=== PATIENT | female | born 1950 | race Caucasian/White ===

== ENCOUNTER → 2018-07-17 09:51 | Outpatient (CLI) | payer MEDICARE, SELFPAY ==
--- NOTE | 2018-07-17 09:57 | DI.RAD.S_ITS ---
PROCEDURE: XR SHOULDER RT MIN 2V INDICATIONS: Evaluation TECHNIQUE: 3 views of the shoulder were acquired. COMPARISON: None. FINDINGS: Bones: No definite acute fractures or dislocations but there is distortion of the humeral head to the degree that prior fracture with healing is the likely cause. A superimposed nondisplaced fracture could not be adequately detected given this circumstance.. No suspicious bony lesions. Visualized ribs appear intact. Soft tissues: No suspicious soft tissue calcifications. IMPRESSION: Probable old fracture as cause of moderate distortion of the humeral head. Superimposed moderate degenerative osteoarthritic change. A definite acute fracture is not seen. If acute trauma is clinically suspected followup by MR scanning may be warranted. Dictated by: Osman Cordero M.D. on 07/17/2018 at 10:36 Approved by: Osman Cordero M.D. on 07/17/2018 at 11:15
== END ==
PROVIDERS: Family Provider Family Medicine; PCP Family Medicine; Visit Provider Internal Medicine
DX: M25.511 Pain in right shoulder (principal)
CPT/HCPCS: 73030

== ENCOUNTER → 2018-09-13 07:11 | Outpatient (CLI) | payer MEDICARE, SELFPAY ==
[2018-09-13 07:35] LABS: Add Manual Diff / Slide Review NO; Basophils Percent Auto 0.8 % (0-2); Eosinophils Percent Auto 1.8 % (2-4); Hematocrit 39.3 % (36-46); Hemoglobin 13.3 g/dL (12.0-16.0); Mean Corpuscular HGB Conc 33.7 % (30-36); Mean Corpuscular Hemoglobin 31.3 PG (26-34); Mean Corpuscular Volume 92.9 fL (80-100); Monocytes Percent Auto 10.5 % (3-14); Neutrophils Absolute Auto 2200 /uL (3000-5900); Neutrophils Percent Auto 49.9 % (50-75); Platelet Count 210 X10^3/uL (150-400); Red Blood Cell Count 4.23 X10^6/uL (4.0-5.2); Red Cell Distribution Width 13.7 % (11.6-14.8); White Blood Cell Count 4.3 X10^3/uL (4.5-11.0)
[2018-09-13 08:10] LABS: Alanine Aminotransferase 41 IU/L (9-52); Albumin 4.7 g/dL (3.5-5.0); Alkaline Phosphatase 48 U/L (38-126); Aspartate Aminotransferase 25 IU/L (14-36); BUN Creatinine Ratio 26.7 (6-22); Bilirubin Total 0.6 mg/dL (0.2-1.3); Blood Urea Nitrogen 16 mg/dL (7-17); Calcium 9.8 mg/dL (8.4-10.2); Carbon Dioxide 30 mmol/L (22-32); Chloride 105 mmol/L (98-107); Cholesterol 200 mg/dL (140-199); Estimated Glomerular Filt Rate > 60.0 mL/min (>60); Globulin 2.4 g/dL (1.7-4.1); Glucose 94 mg/dL (80-110); HDL Cholesterol 65 mg/dL (40-60); HEMOLYSIS < 15 (0-50); LDL Cholesterol Calculated 119 mg/dL (<100); Potassium 4.3 mmol/L (3.4-5.1); Sodium 144 mmol/L (137-145); Total Protein 7.1 g/dL (6.3-8.2); Triglycerides 79 mg/dL (35-150)
[2018-09-13 08:27] LABS: Vitamin D 25 Hydroxy (D3) 57.6 ng/mL (30.0-100.0)
== END ==
PROVIDERS: PCP Family Medicine; Visit Provider Family Medicine
DX: E03.9 Hypothyroidism, unspecified (principal); E78.5 Hyperlipidemia, unspecified; Z78.0 Asymptomatic menopausal state; Z13.0 Encounter for screening for diseases of the blood and blood-forming organs and certain disorders involving the immune mechanism
CPT/HCPCS: 36415; 80053; 80061; 82306; 82728; 84443; 85025

== ENCOUNTER → 2018-11-04 13:33 | Outpatient (CLI) | payer MEDICARE, SELFPAY ==
--- NOTE | 2018-11-04 13:34 | DI.US.S_ITS ---
PROCEDURE: US THYROID INDICATIONS: FOLLOW-UP NODULES TECHNIQUE: Real-time scanning was performed of the thyroid gland, with image documentation. COMPARISON: [facility], US, THYROID, 11/01/2017, 12:10. FINDINGS: Right: Thyroid lobe measures 4.9 x 2.3 x 2.2 cm, and is homogeneous in echotexture. Left: Thyroid lobe measures 2.9 x 1.018 cm, and is homogenous in echotexture. Isthmus: 1.8 mm thick. Nodule number: 1 Location: Right inferior Size: Unchanged at 3.5 x 2.1 x 2.1 cm. Composition: Solid Echogenicity: Hypoechoic Shape: wider than tall. Margins: Smooth Echogenic foci: Internal echogenic punctate foci. Total points: 7 ACR TI-RADS category: Highly suspicious Nodule number: 2 Location: Right superior Size: Unchanged at 0.9 x 0.7 x 1.0 cm. Composition: Solid Echogenicity: Hypoechoic Shape: wider than tall. Margins: Smooth Echogenic foci: None Total points: 4 ACR TI-RADS category: Moderately suspicious IMPRESSION: Highly suspicious right thyroid nodule. Recommend sonographically directed fine needle aspiration if the nodule has not been previously biopsied for pathologic diagnosis and continued sonographic surveillance and the smaller nodule. ACR TI-RADS definitions and recommendations: TI-RADS 1 (benign): 0 points. FNA not needed. TI-RADS 2 (not suspicious): 2 points. FNA not needed. TI-RADS 3 (mildly suspicious): 3 points. * FNA if 2.5 cm or larger, follow up if 1.5 cm or larger (at 1, 3, and 5 years). TI-RADS 4 (moderately suspicious): 4-6 points. * FNA if 1.5 cm or larger, follow up if 1 cm or larger (at 1, 2, 3, and 5 years). TI-RADS 5 (highly suspicious): 7 points or more. * FNA if 1 cm or larger, follow up if 0.5 cm or larger (every year for 5 years). Dictated by: Clay Garcia A Interpreted: Terri Rocha MD on 11/04/2018 at 15:40 Approved by: Terri Rocha MD, PhD on 11/04/2018 at 17:17
== END ==
PROVIDERS: Family Provider Family Medicine; PCP Family Medicine; Referring Provider Nurse Practitioner; Visit Provider Family Medicine
DX: E04.2 Nontoxic multinodular goiter (principal); M85.852 Other specified disorders of bone density and structure, left thigh; Z78.0 Asymptomatic menopausal state; Z90.722 Acquired absence of ovaries, bilateral
CPT/HCPCS: 76536; 77080

== ENCOUNTER 2019-03-14 07:26 | Day surgery (SDC) | payer MEDICARE, SELFPAY ==
--- NOTE | 2019-03-14 | PATH_ITS ---
[facility] Accession Number: [id number] . 01 Material submitted: . PART A: colon - POLYP AT 40 PART B: colon - POLYP AT 20 . 02 Diagnosis: A. Biopsy, Colon Polyp at 40 cm: Tubular adenoma. . B. Biopsy, Colon Polyp at 20 cm: Hyperplastic polyp involving multiple biopsy fragments. MRV/03/17/2019 . 02 Electronically signed: . Shabbir Emerson MD, Pathologist NPI- [id number] . 01 Gross description: . Part A: POLYP AT 40: Received in formalin is 1 fragment(s) of jung, soft tissue measuring 0.3 x 0.3 x 0.3 cm which is entirely submitted and submitted entirely in 1 cassette(s) Part B: POLYP AT 20: Received in formalin are multiple fragment(s) of jung, soft tissue measuring 0.1 x 0.1 x 0.1 cm to 0.3 x 0.2 x 0.2 cm which is entirely submitted and submitted entirely in 1 cassette(s) /DMC /DMC . 02 Pathologist provided ICD-10: D12.4 . 02 CPT . 417069, [id number] Performed at: 01 [facility] [address] [facility], [place], [place] [id number] MD Carl Samuels MD Phone: [phone] Performed at: 02 [facility] [address] [place], [place] [id number] MD Annie Flores MD Phone: [phone]
[2019-03-14 07:56] VITALS: BP 120/69; PULSE 68; RESP 16; TEMP 36.2; O2SAT 100; BMI 29.5
[2019-03-14] MEDS: SODIUM CHLORIDE 0.9% 1,000 ML 200 ML IV (08:23)
[2019-03-14 08:25] VITALS: BMI 29.5
--- NOTE | 2019-03-14 10:08 | P.HP_ITS ---
History of Present Illness Date Patient Seen: 03/14/19 Time Patient Seen: 10:06 Chief complaint: [id number] Narrative: Patient is a woman here for screening colonoscopy. Last exam was 5 years ago. She has a family history of colon cancer personal history of polyps. Patient History Medical History Osteoarthritis (Chronic ~2003) Osteopenia (Chronic 2013) Right knee meniscal tear (Chronic ~2014) Right knee pain (Chronic ~2014) Right thyroid nodule (Chronic 10/12/17) Shoulder pain (Chronic 1999) Tinnitus (Chronic) Vertigo (Chronic) Anemia (Resolved 1973) Cataract (Resolved) Tubular adenoma of colon (Resolved 01/13/13) Surgical History Anesthesia (Resolved) History of colonoscopy with polypectomy (Resolved 01/13/13) History of colonoscopy with polypectomy (Resolved 05/10/09) History of left cataract surgery (Resolved 12/11/17) History of right cataract surgery (Resolved 12/11/17) Status post hysterectomy (Resolved 1987) Status post knee surgery (Resolved 2012) Status post left oophorectomy (Resolved 1989) Status post right oophorectomy (Resolved 1987) Status post tubal ligation (Resolved ~1974) Family History (Updated 09/17/18 @ 13:57 by Meoldy Walsh) Brother Age: 66 Low blood sugar Brother Age: 64 High cholesterol Brother Age: 57 High cholesterol Father Age: 94 Colon cancer Prostate cancer Mother Age: 93 High cholesterol Dementia Sister Age: 68 High cholesterol Sister Age: 59 Low blood sugar Sister Age: 48 High cholesterol Brother No problems noted. Sister No problems noted. Sister No problems noted. Other Malignant melanoma of rectum Social History household members: spouse Smoking Status: Never smoker Family & Social History Family History Brother Age: 66 Low blood sugar Brother Age: 64 High cholesterol Brother Age: 57 High cholesterol Father Age: 94 Colon cancer Prostate cancer Mother Age: 93 High cholesterol Dementia Sister Age: 68 High cholesterol Sister Age: 59 Low blood sugar Sister Age: 48 High cholesterol Brother No problems noted. Sister No problems noted. Sister No problems noted. Other Malignant melanoma of rectum Social History: household members spouse Tobacco & Substance use: Smoking Status Never smoker Meds Home Medications Medication Instructions Recorded Confirmed Type CHOLECALCIFEROL (VITAMIN D3) 5,000 iu PO Q DAY #0 05/17/12 03/14/19 History (VITAMIN D) [place]/Cu/Glucosamine HCl/M 1 tab PO Q DAY #0 06/10/12 03/14/19 History (#GLUCOSAMINE COMPLEX) Calcium (#CALCIUM 500) 500 mg PO Q DAY #0 06/10/12 03/14/19 History MULTIVITAMIN (#MULTIPLE VITAMINS) 1 cap PO Q DAY #0 06/10/12 03/14/19 History ascorbic acid (vitamin C) 1,000 mg PO BID #0 06/10/12 03/14/19 History Iron (#FERROUS FUMARATE) 29 mg PO EVERY OTHER DAY #30 10/08/12 03/14/19 History Ovega-3 1 tab PO BID #0 12/11/17 03/14/19 History levothyroxine 25 mcg tablet 25 mcg PO QAM #90 tab 12/31/18 03/14/19 Rx lutein 20 mg PO DAILY 03/14/19 03/14/19 History Allergies Allergy/AdvReac Type Severity Reaction Status Date / Time Sulfa (Sulfonamide Allergy Mild JOINT PAIN Verified 03/14/19 07:52 Antibiotics) [SULFA (SULFONAMIDE ANTIBIOTICS)] Review of Systems Review of Systems All systems reviewed & are unremarkable except as noted in HPI and below Endocrine Comments: Hypothyroid on medication Exam Vital Signs (past 8 hours): - 03/14/19 07:56 Temperature 97.2 F L Pulse Rate 68 Respiratory Rate 16 Blood Pressure 120/69 Pulse Oximetry 100 Oxygen Delivery Method Room Air Narrative Exam Narrative: coOperative no apparent distress. Lungs are clear to auscultation. No rales or rhonchi. Heart regular rate and rhythm no murmur or gallop. Abdomen is soft nontender without mass. Patient is alert oriented x3 Assessment & Plan Assessment & Plan narrative: Patient for screening colonoscopy. I have discussed the procedure and the rationale with the patient including risks of bleeding, perforation which would necessitate a major operation, failure to find remove all lesions and the potential to tattoo. They appeared to understand and wished to proceed.
--- NOTE | 2019-03-14 10:08 | PM.PREOP ---
Pre-operative Note Interval Note History & Physical reviewed/Exam performed by Physician: Yes Changes to H&P: No ASA Class (for procedural sedation): II
[2019-03-14] MEDS: MIDAZOLAM 5 MG/5 ML VIAL IV (10:29)
[2019-03-14] MEDS: fentaNYL 250 MCG/5 ML INJ IV (10:30)
--- NOTE | 2019-03-14 10:48 | PM.OP.ENDO ---
Operative Date/Time/Diagnoses Date of procedure: 03/14/19 Time of procedure: 10:48 Pre-op diagnosis: Screening colonoscopy. Last exam 5 years ago. History of polyps. Family history of colon cancer in the father. Post-op diagnosis: same (Three small polyps. Occasional diverticulosis) Procedure & Clinicians Study performed: Colonoscopy with cold biopsy Same procedure as scheduled: Yes Indications: Screening Surgeon: Lester Muro Procedure Notes SCOAP/Timeout: Performed Procedure in detail: The patient was placed in the left lateral decubitus position and underwent IV sedation directed by the surgeon consisting of fentanyl and Versed. Digital exam was remarkable for decreased sphincter tone. The scope was inserted and advanced through the rectum into the sigmoid, descending, transverse, and ascending colon. Patient was noted to have occasional sigmoid diverticulosis.. The cecum was reached identified by the ileocecal valve and the appendiceal opening. The scope was gradually brought out. Polyps were found at 40 cm from the anal verge in 20 cm from the anal verge. These were all very small.. The scope ultimately was retroflexed in the rectum. The appearance was normal. The scope was removed and the patient tolerated the procedure well. the prep was excellent. Scope withdrawal time: 18 minutes Sedation minutes: 34 Findings: diverticulosis (Sigmoid) and polyp (Three very small polyps removed) Specimen(s): other (Polyps) Complications: none Recommendations: Colonscopy in 5 years Follow up: as needed Disposition: PACU
[2019-03-14 10:51] VITALS: BP 126/69; PULSE 89; RESP 12; TEMP 37.1; O2SAT 100
[2019-03-14 11:14] VITALS: BP 102/60; PULSE 71; TEMP 36.4; O2SAT 100
== END 2019-03-14 11:27 | disposition home or self-care (01) ==
PROVIDERS: PCP Family Medicine; Visit Provider Specialist
PROC: 0DJD8ZZ Inspection of Lower Intestinal Tract, Via Natural or Artificial Opening Endoscopic (ICD-10-PCS; CPT 45378; principal; 2019-03-14 08:45)
DX: Z86.010 Personal history of colon polyps (principal); Z80.0 Family history of malignant neoplasm of digestive organs; K57.30 Diverticulosis of large intestine without perforation or abscess without bleeding; D12.4 Benign neoplasm of descending colon
CPT/HCPCS: 45380; 88305; 99152; 99153; J2250; J3010

== ENCOUNTER → 2019-08-19 12:29 | Outpatient (CLI) | payer MEDICARE, SELFPAY ==
--- NOTE | 2019-08-19 | DI.MG.S_ITS ---
BILATERAL DIGITAL SCREENING MAMMOGRAM 3D/2D WITH CAD: 08/19/2019 CLINICAL: Routine screening. Family history of breast cancer. Comparison is made to exams dated: 08/14/2017 mammogram, 07/13/2015 mammogram, and 07/09/2014 mammogram - [facility]. There are scattered fibroglandular elements in both breasts. Current study was also evaluated with a Computer Aided Detection (CAD) system. No significant masses, calcifications, or other findings are seen in either breast. There has been no significant interval change. IMPRESSION: NEGATIVE There is no mammographic evidence of malignancy. A 1 year screening mammogram is recommended. This exam was interpreted at Station ID: [id number]. NOTE: For mammograms, a report in lay terms will be sent to the patient. Approximately 15% of breast malignancies will not be visualized mammographically. In the management of a palpable breast mass, a negative mammogram must not discourage biopsy of a clinically suspicious lesion. Electronically Signed By: Denia bay/prosper:08/19/2019 13:36:23 letter sent: Normal Exam ACR BI-RADS Category 1: Negative [id number]
== END ==
PROVIDERS: PCP Family Medicine; Visit Provider Family Medicine
DX: Z12.31 Encounter for screening mammogram for malignant neoplasm of breast (principal); Z80.3 Family history of malignant neoplasm of breast
CPT/HCPCS: 77063; 77067

== ENCOUNTER → 2019-09-03 07:06 | Outpatient (CLI) | payer MEDICARE, SELFPAY ==
[2019-09-03 08:23] LABS: Hemoglobin 13.1 g/dL (12.0-16.0); Mean Corpuscular HGB Conc 33.6 % (30-36); Mean Corpuscular Hemoglobin 31.2 PG (26-34); Mean Corpuscular Volume 92.9 fL (80-100); Platelet Count 221 X10^3/uL (150-400); Red Cell Distribution Width 12.8 % (11.6-14.8); White Blood Cell Count 4.5 X10^3/uL (4.5-11.0)
[2019-09-03 08:37] LABS: Alanine Aminotransferase 34 IU/L (9-52); Albumin 4.5 g/dL (3.5-5.0); Albumin Globulin Ratio 1.6 (1.0-2.8); Alkaline Phosphatase 53 U/L (38-126); Aspartate Aminotransferase 26 IU/L (14-36); BUN Creatinine Ratio 33.3 (6-22); Bilirubin Total 0.6 mg/dL (0.2-1.3); Blood Urea Nitrogen 20 mg/dL (7-17); Calcium 9.7 mg/dL (8.4-10.2); Carbon Dioxide 28 mmol/L (22-32); Chloride 105 mmol/L (98-107); Cholesterol 189 mg/dL (140-199); Estimated Glomerular Filt Rate > 60.0 mL/min (>60); Globulin 2.8 g/dL (1.7-4.1); Glucose 89 mg/dL (80-110); HDL Cholesterol 58 mg/dL (40-60); HEMOLYSIS < 15 (0-50); LDL Cholesterol Calculated 112 mg/dL (<100); Potassium 4.4 mmol/L (3.4-5.1); Sodium 140 mmol/L (137-145); Total Protein 7.3 g/dL (6.3-8.2); Triglycerides 97 mg/dL (35-150)
[2019-09-03 09:04] LABS: TSH w/ Reflex to FT4 1.34 uIU/mL (0.47-4.68)
[2019-09-03 10:18] LABS: Neutrophils Absolute Manual 1935 /uL (3000-5900); Total Cells Counted 100
[2019-09-03 10:20] LABS: RBC Morphology Normal Morphology
== END ==
PROVIDERS: PCP Family Medicine; Visit Provider Family Medicine
DX: D72.819 Decreased white blood cell count, unspecified (principal); E78.5 Hyperlipidemia, unspecified; E03.9 Hypothyroidism, unspecified
CPT/HCPCS: 36415; 80053; 80061; 84443; 85025

== ENCOUNTER → 2019-09-16 14:12 | Outpatient (CLI) | payer MEDICARE, SELFPAY ==
[2019-09-16 15:46] LABS: Ferritin 64.3 ng/mL (11.1-264)
[2019-09-16 16:07] LABS: Vitamin D 25 Hydroxy (D3) 41.8 ng/mL (30.0-100.0)
== END ==
PROVIDERS: PCP Family Medicine; Visit Provider Family Medicine
DX: E55.9 Vitamin D deficiency, unspecified (principal); Z78.9 Other specified health status
CPT/HCPCS: 36415; 82306; 82728

== ENCOUNTER → 2019-11-14 14:00 | Outpatient (CLI) | payer MEDICARE, SELFPAY ==
--- NOTE | 2019-11-14 14:03 | DI.US.S_ITS ---
PROCEDURE: US THYROID INDICATIONS: f/u thyroid nodule TECHNIQUE: Real-time scanning was performed of the thyroid gland, with image documentation. COMPARISON: [facility], US, US THYROID, 11/04/2018, 14:13. FINDINGS: Right: Thyroid lobe measures 4.8 x 1.7 x 1.9 cm, and is homogeneous in echotexture. Left: Thyroid lobe measures 2.9 x 0.8 x 1.0 cm, and is homogenous in echotexture. Isthmus: 2.0 mm thick. Nodule number: 1 Location: Right inferior Size: Unchanged at 3.5 x 2.0 x 2.1 cm. Composition: Solid Echogenicity: Hypoechoic Shape: wider than tall. Margins: Smooth Echogenic foci: Internal punctate echogenic foci Total points: 7 ACR TI-RADS category: Highly suspicious Nodule number: 2 Location: Right superior Size: Unchanged 0.9 x 0.7 x 1.1 cm. Composition: Solid Echogenicity: Hypoechoic Shape: wider than tall. Margins: Smooth Echogenic foci: None Total points: 4 ACR TI-RADS category: Moderately suspicious Nodule number: 3 Location: Right isthmus Size: 1.1 x 0.7 x 0.9 cm. Composition: Solid Echogenicity: Hypoechoic Shape: wider than tall. Margins: Smooth Echogenic foci: Internal punctate echogenic foci Total points: 7 ACR TI-RADS category: Highly suspicious. IMPRESSION: Right thyroid nodules appear stable and there is a new nodule in the right isthmus. Continued sonographic surveillance is recommended. ACR TI-RADS definitions and recommendations: TI-RADS 1 (benign): 0 points. FNA not needed. TI-RADS 2 (not suspicious): 2 points. FNA not needed. TI-RADS 3 (mildly suspicious): 3 points. * FNA if 2.5 cm or larger, follow up if 1.5 cm or larger (at 1, 3, and 5 years). TI-RADS 4 (moderately suspicious): 4-6 points. * FNA if 1.5 cm or larger, follow up if 1 cm or larger (at 1, 2, 3, and 5 years). TI-RADS 5 (highly suspicious): 7 points or more. * FNA if 1 cm or larger, follow up if 0.5 cm or larger (every year for 5 years). Dictated by: Clay GOLDSTEIN Interpreted: Cindy Borja MD on 11/14/2019 at 16:41 Approved by: Cindy Borja M.D. on 11/14/2019 at 16:48
== END ==
PROVIDERS: PCP Family Medicine; Visit Provider Family Medicine
DX: E04.2 Nontoxic multinodular goiter (principal)
CPT/HCPCS: 76536

== ENCOUNTER → 2020-09-16 07:00 | Outpatient (CLI) | payer MEDICARE, SELFPAY ==
[2020-09-16 08:54] LABS: Add Manual Diff / Slide Review NO; Basophils Absolute Auto 0 /uL (0-100); Basophils Percent Auto 0.7 % (0-2); Eosinophils Absolute Auto 100 /uL (0-450); Eosinophils Percent Auto 1.5 % (2-4); Hematocrit 38.2 % (36-46); Hemoglobin 12.9 g/dL (12.0-16.0); Lymphocytes Absolute Auto 1600 /uL (1100-4500); Mean Corpuscular HGB Conc 33.8 % (30-36); Mean Corpuscular Hemoglobin 31.4 PG (26-34); Mean Corpuscular Volume 92.8 fL (80-100); Monocytes Absolute Auto 500 /uL (0-900); Monocytes Percent Auto 9.5 % (3-14); Neutrophils Absolute Auto 3100 /uL (1500-7000); Neutrophils Percent Auto 58.3 % (50-75); Platelet Count 224 X10^3/uL (150-400); Red Blood Cell Count 4.11 X10^6/uL (4.0-5.2); White Blood Cell Count 5.4 X10^3/uL (4.5-11.0)
[2020-09-16 09:40] LABS: Alanine Aminotransferase 37 IU/L (<35); Albumin 4.6 g/dL (3.5-5.0); Albumin Globulin Ratio 1.9 (1.0-2.8); Alkaline Phosphatase 58 U/L (38-126); Aspartate Aminotransferase 28 IU/L (14-36); BUN Creatinine Ratio 32.7 (6-22); Bilirubin Total 0.5 mg/dL (0.2-1.3); Blood Urea Nitrogen 18 mg/dL (7-17); Calcium 9.5 mg/dL (8.4-10.2); Carbon Dioxide 28 mmol/L (22-32); Chloride 106 mmol/L (98-107); Cholesterol 195 mg/dL (140-199); Estimated Glomerular Filt Rate > 60.0 mL/min (>60); Globulin 2.4 g/dL (1.7-4.1); Glucose 97 mg/dL (80-110); HDL Cholesterol 64 mg/dL (40-60); HEMOLYSIS < 15 (0-50); LDL Cholesterol Calculated 116 mg/dL (<100); Potassium 4.5 mmol/L (3.4-5.1); Sodium 140 mmol/L (137-145); Triglycerides 76 mg/dL (35-150)
[2020-09-16 09:44] LABS: Vitamin D 25 Hydroxy (D3) 52.9 ng/mL (30.0-100.0)
[2020-09-16 09:57] LABS: TSH w/ Reflex to FT4 0.92 uIU/mL (0.47-4.68)
[2020-09-16 10:02] LABS: Ferritin 75 ng/mL (11-264)
== END ==
PROVIDERS: PCP Family Medicine; Referring Provider Family Medicine; Visit Provider Family Medicine
DX: D64.9 Anemia, unspecified (principal); E03.9 Hypothyroidism, unspecified; E04.1 Nontoxic single thyroid nodule; E78.5 Hyperlipidemia, unspecified; M85.80 Other specified disorders of bone density and structure, unspecified site
CPT/HCPCS: 36415; 80053; 80061; 82306; 82728; 84443; 85025

== ENCOUNTER → 2020-10-29 14:01 | Outpatient (CLI) | payer MEDICARE, SELFPAY | PROVIDERS: PCP Family Medicine; Referring Provider Family Medicine; Visit Provider Family Medicine | DX: M85.852 Other specified disorders of bone density and structure, left thigh (principal); Z78.0 Asymptomatic menopausal state; E07.9 Disorder of thyroid, unspecified; Z90.722 Acquired absence of ovaries, bilateral | CPT/HCPCS: 77080 ==

== ENCOUNTER → 2020-12-21 14:21 | Outpatient (CLI) | payer MEDICARE, SELFPAY ==
[2020-12-21] MEDS: COVID-19 VACC #1, MRNA(MOD) 100 MCG/0.5 ML VIAL IM (14:24)
== END ==
PROVIDERS: PCP Family Medicine; Visit Provider Internal Medicine
DX: Z23 Encounter for immunization (principal)
CPT/HCPCS: 0011A; 91301

== ENCOUNTER → 2021-01-18 14:36 | Outpatient (CLI) | payer MEDICARE, SELFPAY ==
[2021-01-18] MEDS: COVID-19 VACC #2, MRNA(MOD) 100 MCG/0.5 ML VIAL IM (14:41)
== END ==
PROVIDERS: PCP Family Medicine; Visit Provider Internal Medicine
DX: Z23 Encounter for immunization (principal)
CPT/HCPCS: 0012A; 91301

== ENCOUNTER → 2021-06-11 09:52 | Outpatient (CLI) | payer MEDICARE, SELFPAY ==
--- NOTE | 2021-06-11 09:54 | DI.MG.S_ITS ---
BILATERAL DIGITAL SCREENING MAMMOGRAM 3D/2D WITH CAD: 06/11/2021 CLINICAL: Routine screening. Family history of breast cancer. Comparison is made to exams dated: 08/19/2019 mammogram, 08/14/2017 mammogram, 07/13/2015 mammogram, 07/09/2014 mammogram, 06/24/2013 mammogram, and 10/16/2006 mammogram - [facility]. The tissue of both breasts is heterogeneously dense. This may lower the sensitivity of mammography. Current study was also evaluated with a Computer Aided Detection (CAD) system. No significant masses, calcifications, or other findings are seen in either breast. There has been no significant interval change. IMPRESSION: NEGATIVE There is no mammographic evidence of malignancy. A 1 year screening mammogram is recommended. This exam was interpreted at Station ID: [id number]. NOTE: For mammograms, a report in lay terms will be sent to the patient. Approximately 15% of breast malignancies will not be visualized mammographically. In the management of a palpable breast mass, a negative mammogram must not discourage biopsy of a clinically suspicious lesion. Electronically Signed By: Bryant Candelaria M.D. slc/:06/13/2021 07:57:59 letter sent: Normal Exam ACR BI-RADS Category 1: Negative 3341F
== END ==
PROVIDERS: PCP Family Medicine; Referring Provider Family Medicine; Visit Provider Family Medicine
DX: Z12.31 Encounter for screening mammogram for malignant neoplasm of breast (principal); Z80.3 Family history of malignant neoplasm of breast
CPT/HCPCS: 77063; 77067

== ENCOUNTER → 2021-10-03 14:55 | Outpatient (CLI) | payer MEDICARE, SELFPAY ==
[2021-10-03 15:40] LABS: Iron 76 ug/dL (37-170)
[2021-10-03 15:41] LABS: Cholesterol 197 mg/dL (140-199); HDL Cholesterol 86 mg/dL (40-60); LDL Cholesterol Calculated 90 mg/dL (<100); Triglycerides 103 mg/dL (35-150)
[2021-10-03 15:57] LABS: T4 Total Thyroxine 6.08 ug/dL (5.5-11.0)
[2021-10-03 16:11] LABS: Thyroid Stimulating Hormone 0.512 uIU/mL (0.47-4.68)
[2021-10-03 16:16] LABS: Ferritin 69 ng/mL (11-264)
[2021-10-04 07:17] LABS: Triiodothyronine T3 Total 76 ng/dL (71-180)
== END ==
PROVIDERS: PCP Family Medicine; Referring Provider Family Medicine; Visit Provider Family Medicine
DX: E03.9 Hypothyroidism, unspecified (principal); E61.1 Iron deficiency; Z13.220 Encounter for screening for lipoid disorders
CPT/HCPCS: 36415; 80061; 82728; 83540; 84436; 84443; 84480

== ENCOUNTER → 2021-10-07 13:03 | Outpatient (CLI) | payer MEDICARE, SELFPAY ==
[2021-10-07] MEDS: COVID-19 VACC #3, MRNA(MOD) 50 MCG/0.25 ML VIAL IM (13:07)
== END ==
PROVIDERS: PCP Family Medicine; Visit Provider Internal Medicine
DX: Z23 Encounter for immunization (principal)
CPT/HCPCS: 0013A; 91301

== ENCOUNTER → 2022-08-21 15:49 | Outpatient (CLI) | payer MEDICARE, SELFPAY ==
--- NOTE | 2022-08-21 15:51 | DI.MRI.S_ITS ---
PROCEDURE: MR SHOULDER RT WO CON INDICATIONS: shoulder injury pain TECHNIQUE: Noncontrast oblique coronal T2 fast spin echo with fat saturation, oblique sagittal T1 spin echo and T2 fast spin echo with fat saturation, axial T1 spin echo and T2 fast spin echo with fat saturation through the shoulder. COMPARISON: None. FINDINGS: Image quality: Excellent. Rotator cuff: Moderate T2 signal elevation throughout the supraspinatus and infraspinatus tendons at the humeral insertion sites, extending the musculotendinous junctions, indicating tendinopathy. Superimposed moderate grade intrasubstance tearing of the mid and anterior supraspinatus tendon at the humeral insertion site extending the musculotendinous junction. Low-grade partial-thickness intrasubstance tearing of the posterior supraspinatus and anterior infraspinatus tendon at the humeral insertion site extending to the musculotendinous junction. Low-grade partial-thickness intrasubstance tearing of the mid and superior aspect of the subscapularis tendon at the humeral insertion site extending the musculotendinous junction. Teres minor is intact. No significant rotator cuff atrophy. Bones and bursae: No bone marrow contusions or fractures. Moderate glenohumeral and acromioclavicular joint degeneration. The acromion demonstrates conventional anatomy, without an os acromiale. No pathologic subacromial-subdeltoid or subcoracoid bursal fluid is present. Capsule and soft tissues: There is a small glenohumeral joint effusion. Multiple intra-articular loose bodies are present. Largest of these appears to be in the posterosuperior aspect of the glenohumeral joint measuring 10 mm diameter. Diffuse degenerative tearing of the glenoid labrum. The long head of the biceps tendon demonstrates normal location and morphology. The rotator interval appears normal, without fibrosis. The coracohumeral ligament is normal in thickness. IMPRESSION: 1. Acromioclavicular and glenohumeral joint osteoarthritis. Degenerative labral tearing. 2. Supraspinatus and infraspinatus tendinopathy with superimposed partial thickness tearing as described above. No full-thickness rotator cuff tear. 3. Partial-thickness tearing of the subscapularis. 4. Glenohumeral joint effusion with intra-articular loose bodies. Dictated by: Feliberto Wells M.D. on 08/21/2022 at 16:40 Transcribed by: PATT on 08/21/2022 at 16:43 Approved by: Feliberto Wells M.D. on 08/21/2022 at 17:04
== END ==
PROVIDERS: PCP Family Medicine; Referring Provider Family Medicine; Visit Provider Family Medicine
DX: M75.111 Incomplete rotator cuff tear or rupture of right shoulder, not specified as traumatic (principal); S43.491A Other sprain of right shoulder joint, initial encounter; M19.011 Primary osteoarthritis, right shoulder; M25.511 Pain in right shoulder; M54.2 Cervicalgia; G89.29 Other chronic pain
CPT/HCPCS: 73221

== ENCOUNTER → 2022-10-16 10:01 | Outpatient (CLI) | payer MEDICARE, SELFPAY ==
[2022-10-16 11:02] LABS: Add Manual Diff / Slide Review NO; Basophils Absolute Auto 0 /uL (0-100); Basophils Percent Auto 0.9 % (0-2); Eosinophils Absolute Auto 100 /uL (0-450); Eosinophils Percent Auto 1.8 % (2-4); Hematocrit 37.5 % (36-46); Hemoglobin 12.7 g/dL (12.0-16.0); Lymphocytes Absolute Auto 1600 /uL (1100-4500); Lymphocytes Percent Auto 29.4 % (25-40); Mean Corpuscular HGB Conc 33.8 % (30-36); Mean Corpuscular Hemoglobin 30.9 PG (26-34); Mean Corpuscular Volume 91.5 fL (80-100); Monocytes Absolute Auto 500 /uL (0-900); Monocytes Percent Auto 10.4 % (3-14); Neutrophils Absolute Auto 3000 /uL (1500-7000); Neutrophils Percent Auto 57.5 % (50-75); Platelet Count 262 X10^3/uL (150-400); Red Cell Distribution Width 13.9 % (11.6-14.8); White Blood Cell Count 5.3 X10^3/uL (4.5-11.0)
[2022-10-16 11:55] LABS: Cholesterol 204 mg/dL (140-199); HDL Cholesterol 69 mg/dL (40-60); LDL Cholesterol Calculated 113 mg/dL (<100); Triglycerides 110 mg/dL (35-150)
[2022-10-16 12:14] LABS: Vitamin D 25 Hydroxy (D3) 55.7 ng/mL (30.0-100.0)
[2022-10-16 12:33] LABS: Ferritin 63 ng/mL (11-264)
[2022-10-16 20:55] LABS: Iron 73 ug/dL (37-170)
[2022-10-16 21:56] LABS: TSH w/ Reflex to FT4 0.05 uIU/mL (0.47-4.68)
[2022-10-18 18:15] LABS: Free T4, Direct Thyroxine 1.19 ng/dL (0.78-2.19)
== END ==
PROVIDERS: PCP Family Medicine; Referring Provider Family Medicine; Visit Provider Family Medicine
DX: E78.5 Hyperlipidemia, unspecified (principal); E61.1 Iron deficiency; E55.9 Vitamin D deficiency, unspecified; E03.9 Hypothyroidism, unspecified
CPT/HCPCS: 36415; 80061; 82306; 82728; 83540; 84439; 84443; 85025

== ENCOUNTER → 2022-10-27 15:11 | Outpatient (CLI) | payer MEDICARE, SELFPAY ==
--- NOTE | 2022-10-27 15:12 | DI.RAD.S_ITS ---
PROCEDURE: XR DEXA AXIAL SKELETON INDICATIONS: post menopausal COMPARISON: [facility], CR, XR DEXA AXIAL SKELETON, 10/29/2020, 14:18. FINDINGS: This blank DEXA report has been sent in error by the PACS system. The correct and complete report will be forthcoming in 1-2 days. Thank you for your patience and understanding. Dictated by: Terri Rocha MD, PhD on 10/31/2022 at 13:15 Approved by: Terri Rocha MD, PhD on 10/31/2022 at 13:20
== END ==
PROVIDERS: PCP Family Medicine; Referring Provider Family Medicine; Visit Provider Family Medicine
DX: M81.0 Age-related osteoporosis without current pathological fracture (principal)
CPT/HCPCS: 77080

== ENCOUNTER → 2022-12-06 06:56 | Outpatient (CLI) | payer MEDICARE, SELFPAY ==
[2022-12-06 09:10] LABS: Cholesterol 202 mg/dL (140-199); HDL Cholesterol 64 mg/dL (40-60); LDL Cholesterol Calculated 123 mg/dL (<100); Triglycerides 77 mg/dL (35-150)
[2022-12-06 09:36] LABS: TSH w/ Reflex to FT4 1.39 uIU/mL (0.47-4.68)
== END ==
PROVIDERS: PCP Family Medicine; Referring Provider Family Medicine; Visit Provider Family Medicine
DX: E78.5 Hyperlipidemia, unspecified (principal); E03.8 Other specified hypothyroidism; E06.3 Autoimmune thyroiditis
CPT/HCPCS: 36415; 80061; 84443

== ENCOUNTER → 2023-02-03 12:34 | Outpatient (CLI) | payer MEDICARE, SELFPAY ==
--- NOTE | 2023-02-03 12:35 | DI.CT.S_ITS ---
PROCEDURE: CT SHOULDER RIGHT WITHOUT CON INDICATIONS: Primary osteoarthritis, right shoulder TECHNIQUE: Noncontrast 1-1.5 mm thick sections acquired from the acromioclavicular joint to the inferior scapula, with coronal and sagittal reformatting. COMPARISON: None. FINDINGS: Image quality: Good Bones: Advanced degenerative changes of the glenohumeral joint, with prominent spur at the humeral attachment of the inferior glenohumeral ligament. Mild acromioclavicular degenerative changes. Enthesopathic changes at the greater tuberosity, with intraosseous ganglion cyst formation. There is also a moderate size ossification adjacent to the posterior superior humeral head. No displaced fracture or dislocation identified. There are subchondral geodes. Soft tissues: Possible right thyroid nodule, better characterized on prior ultrasound, please see prior report. Partially visualized lungs, without acute abnormality. Coronary calcifications are present. IMPRESSION: Degenerative changes as outlined above. Dictated by: Cedric Sultana M.D. on 02/04/2023 at 10:22 Approved by: Cerdic Sultana M.D. on 02/04/2023 at 10:26
== END ==
PROVIDERS: PCP Family Medicine; Referring Provider Orthopaedic Surgery; Visit Provider Orthopaedic Surgery
DX: M19.011 Primary osteoarthritis, right shoulder (principal)
CPT/HCPCS: 73200

== ENCOUNTER → 2023-10-16 11:20 | Outpatient (CLI) | payer MEDICARE, SELFPAY ==
--- NOTE | 2023-10-16 11:23 | DI.RAD.S_ITS ---
PROCEDURE: XR SHOULDER LT MIN 2V INDICATIONS: shoulder pain TECHNIQUE: 3 views of the shoulder were acquired. COMPARISON: None FINDINGS: Bones: There is advanced degenerative changes of the glenohumeral joint. No displaced fracture or dislocation. Prominent osteophyte at the axillary pouch Soft tissues: No suspicious calcifications. IMPRESSION: Advanced glenohumeral degenerative changes. If there is high concern for further derangement, consider MRI evaluation. Dictated by: Cedric Sultana M.D. on 10/16/2023 at 13:37 Approved by: Cedric Sultana M.D. on 10/16/2023 at 13:39
[2023-10-16 13:07] LABS: Add Manual Diff / Slide Review NO; Basophils Absolute Auto 0 /uL (0-100); Basophils Percent Auto 0.8 % (0-2); Eosinophils Absolute Auto 100 /uL (0-450); Eosinophils Percent Auto 2.3 % (2-4); Hematocrit 38.5 % (36-46); Lymphocytes Absolute Auto 1800 /uL (1100-4500); Lymphocytes Percent Auto 32.1 % (25-40); Mean Corpuscular HGB Conc 33.8 % (30-36); Mean Corpuscular Hemoglobin 30.7 PG (26-34); Mean Corpuscular Volume 90.8 fL (80-100); Monocytes Absolute Auto 600 /uL (0-900); Monocytes Percent Auto 11.4 % (3-14); Neutrophils Absolute Auto 3000 /uL (1500-7000); Neutrophils Percent Auto 53.4 % (50-75); Platelet Count 229 X10^3/uL (150-400); Red Blood Cell Count 4.24 X10^6/uL (4.0-5.2); Red Cell Distribution Width 13.4 % (11.6-14.8); White Blood Cell Count 5.6 X10^3/uL (4.5-11.0)
[2023-10-16 13:42] LABS: Cholesterol 217 mg/dL (140-199); Glucose 90 mg/dL (80-110); HDL Cholesterol 63 mg/dL (40-60); Iron 107 ug/dL (37-170); LDL Cholesterol Calculated 126 mg/dL (<100); Triglycerides 141 mg/dL (35-150)
[2023-10-16 13:53] LABS: Free T3, Triiodothyronine Free 3.71 pg/mL (2.77-5.27); Free T4, Direct Thyroxine 0.86 ng/dL (0.78-2.19)
[2023-10-16 14:05] LABS: Ferritin 56 ng/mL (11-264)
[2023-10-16 14:07] LABS: Thyroid Stimulating Hormone 0.656 uIU/mL (0.47-4.68)
[2023-10-18 16:38] LABS: Hep C Virus Ab w/Reflex Quant NEGATIVE s/c (NEGATIVE)
== END ==
PROVIDERS: PCP Family Medicine; Referring Provider Family Medicine; Visit Provider Family Medicine
DX: M25.512 Pain in left shoulder (principal); M25.712 Osteophyte, left shoulder; E03.9 Hypothyroidism, unspecified; Z13.9 Encounter for screening, unspecified; D64.9 Anemia, unspecified
CPT/HCPCS: 36415; 73030; 80061; 82728; 82947; 83540; 84439; 84443; 84481; 85025; 86803

== ENCOUNTER → 2023-11-02 13:32 | Outpatient (CLI) | payer MEDICARE, SELFPAY ==
--- NOTE | 2023-11-02 13:33 | DI.MRI.S_ITS ---
PROCEDURE: MR SHOULDER LT WO CON INDICATIONS: shoulder pain TECHNIQUE: Noncontrast oblique coronal T2 fast spin echo with fat saturation, oblique sagittal T1 spin echo and T2 fast spin echo with fat saturation, axial T1 spin echo and T2 fast spin echo with fat saturation through the shoulder. COMPARISON: [facility], CR, XR SHOULDER LT MIN 2V, 10/16/2023, 11:37. FINDINGS: Image quality: Excellent. Rotator cuff: There is high-grade partial-thickness tear of the supraspinatus and subscapularis tendons involving both articular and bursal surfaces. There may be full-thickness pinhole perforation of the supraspinatus tendon. There is mild infraspinatus tendinosis without high-grade tendon tear. Sagittal images demonstrate mild supraspinatus and subscapularis. muscle atrophy. Bones and bursae: No bone marrow contusions or fractures. Severe glenohumeral joint degeneration with severe loss of cartilage, periarticular osteophyte and subchondral cysts formation and reactive edema. There is mild acromioclavicular joint degeneration. The acromion demonstrates conventional anatomy, without an os acromiale. There is moderate glenohumeral joint effusion. Capsule and soft tissues: There is circumferential degenerative labral tear. The long head of the biceps tendon demonstrates normal location and morphology. The rotator interval appears normal, without fibrosis. The coracohumeral ligament is normal in thickness. IMPRESSION: 1. High grade partial-thickness tear of the supraspinatus and subscapularis tendons. There is mild supraspinatus and subscapularis muscle atrophy. 2. Low-grade tendinosis of the infraspinatus tendon. 3. Severe glenohumeral joint degeneration. 4. Circumferential degenerative labral tearing labral tear. 5. Moderate glenohumeral joint effusion. Dictated by: Cindy Borja M.D. on 11/02/2023 at 16:48 Approved by: Cindy Borja M.D. on 11/03/2023 at 7:48
--- NOTE | 2023-11-02 13:33 | DI.MG.S_ITS ---
BILATERAL DIGITAL SCREENING MAMMOGRAM 3D/2D WITH CAD: 11/02/2023 CLINICAL: Routine screening. Family history of breast cancer. Comparison is made to exams dated: 06/11/2021 mammogram, 08/19/2019 mammogram, and 08/14/2017 mammogram - [facility]. Both breasts are heterogeneously dense, which may obscure small masses (category c / 51-75% glandular tissue). Current study was also evaluated with a Computer Aided Detection (CAD) system. No significant masses, calcifications, or other findings are seen in either breast. There has been no significant interval change. IMPRESSION: NEGATIVE There is no mammographic evidence of malignancy. A 1 year screening mammogram is recommended. Based on the Tyrer Cuzick model (a risk assessment model) the patient's lifetime risk is 4.6% and her 10 year risk is 4.2%. According to the ACR, ACS, and NCCN guidelines, an annual breast MRI exam along with mammogram is recommended if the patient's lifetime risk is 20% or greater. This exam was interpreted at Station ID: [id number]. NOTE: For mammograms, a report in lay terms will be sent to the patient. Approximately 15% of breast malignancies will not be visualized mammographically. In the management of a palpable breast mass, a negative mammogram must not discourage biopsy of a clinically suspicious lesion. Electronically Signed By: Mai Hooper M.D., PH.D tiago/prosper:11/03/2023 00:48:53 letter sent: Normal Exam ACR BI-RADS Category 1: Negative 3341F
== END ==
PROVIDERS: PCP Family Medicine; Referring Provider Family Medicine; Visit Provider Family Medicine
DX: Z12.31 Encounter for screening mammogram for malignant neoplasm of breast (principal); M75.112 Incomplete rotator cuff tear or rupture of left shoulder, not specified as traumatic; M19.012 Primary osteoarthritis, left shoulder; S43.492A Other sprain of left shoulder joint, initial encounter; M25.512 Pain in left shoulder; M25.412 Effusion, left shoulder
CPT/HCPCS: 73221; 77063; 77067

== ENCOUNTER 2024-10-09 08:28 | Emergency (ER) | payer MEDICARE, SELFPAY ==
[2024-10-09 08:38] VITALS: BP 148/70; PULSE 89; RESP 18; TEMP 36.6; O2SAT 98; BMI 31.8
--- NOTE | 2024-10-09 08:43 | DI.RAD.S_ITS ---
PROCEDURE: XR KNEE RT 3V INDICATIONS: Right knee pain after twisting TECHNIQUE: 3 views of the knee were acquired. COMPARISON: None. FINDINGS: Bones: No fractures or dislocations. No suspicious bony lesions. Tricompartmental osteoarthritis. Soft tissues: No joint effusion. No suspicious soft tissue calcifications. IMPRESSION: No acute bony abnormality or significant effusion. Dictated by: Terri Rocha MD, PhD on 10/09/2024 at 9:08 Approved by: Terri Rocha MD, PhD on 10/09/2024 at 9:09
--- NOTE | 2024-10-09 08:44 | ED.EXTPRO ---
HPI - Extremity Problem General Chief complaint: Extremity Problem,Nontraumatic Stated complaint: r knee/leg pain/injury Time Seen by Provider: 10/09/24 08:36 Source: patient Mode of arrival: Ambulatory History of Present Illness HPI Narrative: Patient is a 74-year-old female who is here for evaluation of right knee pain. She has been having issues with her right knee for the past several weeks. She saw her primary doctor earlier this. Has been she states that yesterday she was coming down some stairs carrying some trash when she ?tweaked? her right knee. Since that time she has had pain in the right knee. Has had to use a walker to try to support herself. No skin changes. Has taken. Related Data Home Medications Medication Instructions Recorded Confirmed CHOLECALCIFEROL (VITAMIN D3) 5,000 iu PO Q DAY ##0 05/17/12 10/06/24 (VITAMIN D) Calcium (#CALCIUM 500) 500 mg PO Q DAY ##0 06/10/12 10/06/24 MULTIVITAMIN (#MULTIPLE VITAMINS) 1 cap PO Q DAY ##0 06/10/12 10/06/24 ascorbic acid (vitamin C) 500 mg 1,000 mg PO BID ##0 06/10/12 10/06/24 tablet Iron (#FERROUS FUMARATE) 29 mg PO EVERY OTHER DAY ##30 10/08/12 10/06/24 omega-3 fatty acids 500 mg-dha 270 1 tab PO BID ##0 12/11/17 10/06/24 mg-epa 135 mg capsule (Ovega-3) lutein 20 mg capsule 20 mg PO DAILY 03/14/19 10/06/24 glucosamine 500 mg-msm 100 mg-vit cap PO Joint health 10/16/23 10/06/24 C 20 wb-liwou-cdgm-primrose capsule (Joint Support Complex) red yeast rice 600 mg capsule 1,200 mg PO DAILY High cholesterol 10/16/23 10/06/24 Allergies Allergy/AdvReac Type Severity Reaction Status Date / Time Sulfa (Sulfonamide Allergy Mild JOINT PAIN Verified 10/06/24 10:47 Antibiotics) [SULFA (SULFONAMIDE ANTIBIOTICS)] Review of Systems Constitutional Constitutional: Reports system reviewed and no additional complaints, except as documented Musculoskeletal Musculoskeletal: Reports system reviewed and no additional complaints, except as documented Integumentary/Breasts Skin/Breast: Reports system reviewed and no additional complaints, except as documented Neurologic Neurologic: Reports system reviewed and no additional complaints, except as documented Patient History Medical History (Updated 10/09/24 @ 09:58 by Cj Mosley DO) Right thyroid nodule (10/12/17) Tubular adenoma of colon (01/13/13) Right knee meniscal tear (~2014) Right knee pain (~2014) Cataract Tinnitus Vertigo Osteopenia (2013) Shoulder pain (1999) Anemia (1973) Osteoarthritis (~2003) Surgical History History of colonoscopy with polypectomy (05/10/09) History of colonoscopy with polypectomy (01/13/13) History of right cataract surgery (12/11/17) History of left cataract surgery (12/11/17) Anesthesia Status post right oophorectomy (1987) Status post left oophorectomy (1989) Status post knee surgery (2012) Status post hysterectomy (1987) Status post tubal ligation (~1974) Family History Brother Age: 72 Low blood sugar Brother Age: 70 High cholesterol Brother Age: 63 High cholesterol Father Age: 100 Colon cancer Prostate cancer Mother Age: 99 High cholesterol Dementia Sister Age: 74 High cholesterol Sister Age: 65 Low blood sugar Sister Age: 54 High cholesterol Brother No problems noted. Sister No problems noted. Sister No problems noted. Other Malignant melanoma of rectum Social History marital status: number of children: 2 household members: spouse lives independently: Yes caregiver/support person: No housing: house Smoking Status: Never smoker second hand exposure: No alcohol intake: current substance use type: does not use Smoking Status: Never smoker Substance Use Type: does not use Exam Initial Vital Signs Initial Vital Signs: Vital Signs Temperature 97.9 F 10/09/24 08:38 Pulse Rate 89 10/09/24 08:38 Respiratory Rate 18 10/09/24 08:38 Blood Pressure 148/70 H 10/09/24 08:38 Pulse Oximetry 98 10/09/24 08:38 Oxygen Delivery Method Room Air 10/09/24 08:38 Const General: cooperative, comfortable and No ill appearing HENMT Head: normal to inspection Skin General: no rashes or lesions noted Neuro Sensory Exam: no sensory deficits noted Extrem Other: Mild discomfort to bilateral hamstrings. Mild discomfort to medial and lateral joint line. Can do a straight leg raise. Her patellar tendon and quadriceps tendon are intact. ACL MCL PCL and LCL appear intact as well. Course Orders Ordered: ED Orders 10/09/24 08:43 XR knee RT 3V Stat Vital Signs Vital signs: Vital Signs - 8 hr 10/09/24 08:38 Temperature 97.9 F Pulse Rate 89 Respiratory Rate 18 Blood Pressure 148/70 H Pulse Oximetry 98 Oxygen Delivery Method Room Air MDM - Extremity (Nontraumatic) Imaging Data Extremity x-ray #1: Radiologist's Impression: PROCEDURE: XR KNEE RT 3V INDICATIONS: Right knee pain after twisting TECHNIQUE: 3 views of the knee were acquired. COMPARISON: None. FINDINGS: Bones: No fractures or dislocations. No suspicious bony lesions. Tricompartmental osteoarthritis. Soft tissues: No joint effusion. No suspicious soft tissue calcifications. IMPRESSION: No acute bony abnormality or significant effusion. [facility] Narrative Medical decision making narrative: Her exam is benign. There was no signs of infection or gout. No fractures noted on the x-rays. She was afebrile. I do suspect a soft tissue injury potentially even a meniscus tear. She has hydroxyzine and hydrocodone at home although she states she only took half of the hydrocodone last evening. She states she does not like the way that it makes her feel. She also has a knee brace at home. Recommended that she follow up with physical therapy but she has scheduled but it has not until November. Recommended that she contact the orthopedic provider that she was seen in the past to see about the need for a new referral if needed. She was given return precautions. Discharge Plan Departure Patient Disposition: Home Clinical Impression: Acute knee pain Instructions: How To Perform RICE (Rest, Ice, Compress, Elevate), DI for Knee Pain Activity Restrictions/Additional Instructions: You no restrictions on your activities. Continue with the ice and they Tylenol and ibuprofen. You can use the hydrocodone as needed for breakthrough pain. Recommend that you contact your orthopedic surgeon to discuss whether or not you need a new referral to be evaluated by their office. Contact your primary doctor for a follow-up. Prescriptions: No Action red yeast rice 600 mg capsule 1,200 mg PO DAILY Joint Support Complex [id number] mg capsule PO CHOLECALCIFEROL (VITAMIN D3) (VITAMIN D) 5,000 iu PO Q DAY Qty: 0 MULTIVITAMIN (#MULTIPLE VITAMINS) 1 cap PO Q DAY Qty: 0 Calcium (#CALCIUM 500) 500 mg PO Q DAY Qty: 0 ascorbic acid (vitamin C) 500 MG tablet 1,000 mg PO BID Qty: 0 Iron (#FERROUS FUMARATE) 29 mg PO EVERY OTHER DAY Qty: 30 Ovega-3 1 EACH capsule 1 tab PO BID Qty: 0 lutein 20 mg Capsule 20 mg PO DAILY Referrals: Mable Gongora MD [Primary Care Provider] - Stand Alone Forms: Patient Portal/API/Survey
[2024-10-09 10:07] VITALS: BP 150/69; PULSE 89; RESP 20; O2SAT 100
== END 2024-10-09 10:09 | disposition home or self-care (01) ==
PROVIDERS: Emergency Provider Emergency Medicine; PCP Family Medicine
DX: M25.561 Pain in right knee (principal); X50.1XXA Overexertion from prolonged static or awkward postures, initial encounter
CPT/HCPCS: 73562; 99281; 99283

== ENCOUNTER → 2024-10-16 07:29 | Outpatient (CLI) | payer MEDICARE, SELFPAY ==
--- NOTE | 2024-10-16 07:31 | DI.MRI.S_ITS ---
PROCEDURE: MR KNEE RT WO CON INDICATIONS: right knee pain, severe, after twisting injury TECHNIQUE: Noncontrast sagittal PD fast spin echo and T2 fast spin echo with fat saturation, sagittal 3-D FLASH with fat saturation; coronal T1 spin echo and PD fast spin echo with fat saturation, and axial PD fast spin echo with fat saturation through the knee. COMPARISON: [facility], CR, XR KNEE RT 3V, 10/09/2024, 8:43. FINDINGS: Image quality: Excellent. Menisci: Peripheral displacement of medial meniscus bowing medial collateral ligament is seen. There is horizontal oblique tear involving body and posterior horn of medial meniscus extending to inferior articulating surface. Peripheral displacement of lateral meniscus bowing lateral collateral ligament is also seen with complex tear involving anterior horn, body and posterior horn of lateral meniscus extending to both superior and inferior articulating surfaces. There is suggestion of torn posterior medial meniscal root ligament. Cruciate ligaments: The anterior and posterior cruciate ligaments appear intact. Medial structures: The medial collateral ligament appears mildly thickened with surrounding edema. Visualized portions of the pes anserinus tendons appear normal. No abnormal bursal fluid. Lateral structures: The lateral collateral ligament is thickened with intrasubstance T2 hyperintense signal and surrounding edema at its femoral insertion. The long and short heads of the biceps femoris tendon appear intact. The popliteus tendon appears normal. Iliotibial band appears normal. Anterior structures: The quadriceps and patellar tendons appear intact. Patellar alignment is normal. No edema in the infrapatellar fat pad. Bones and cartilage: Moderate to severe tricompartmental osteoarthritis and chondromalacia most notably in lateral femoral tibial compartment with near complete loss of articulating cartilage. No acute fracture or dislocation. No suspicious bony lesions. Joint space: There is moderate knee joint fluid. There is a small popliteal cyst measures 1.5 x 2.7 cm in transverse and AP dimensions. Normal appearing synovial plicae are incidentally noted. IMPRESSION: 1. Horizontal oblique tear involving body and posterior horn of medial meniscus extending to inferior articulating surface. Suggestion of torn posterior medial meniscal root. 2. Complex tear involving lateral meniscus extending to both superior and inferior articulating surfaces. 3. The cruciate ligaments are intact. Low-grade proximal MCL sprain. Moderate grade partial-thickness tear involving proximal LCL. 4. Moderate to severe tricompartmental osteoarthritis and chondromalacia most notably in lateral femoral tibial compartment. No acute fracture or dislocation. Moderate joint effusion and a small popliteal cyst. No gross loose bodies. Dictated by: Rafael Jacome M.D. on 10/16/2024 at 12:20 Approved by: Rafael Jacome M.D. on 10/16/2024 at 12:24
== END ==
PROVIDERS: PCP Family Medicine; Referring Provider Family Medicine; Visit Provider Family Medicine
DX: S83.231A Complex tear of medial meniscus, current injury, right knee, initial encounter (principal); S83.241A Other tear of medial meniscus, current injury, right knee, initial encounter; S83.411A Sprain of medial collateral ligament of right knee, initial encounter; S83.421A Sprain of lateral collateral ligament of right knee, initial encounter; M17.11 Unilateral primary osteoarthritis, right knee; M94.261 Chondromalacia, right knee; M25.461 Effusion, right knee; M71.21 Synovial cyst of popliteal space [Baker], right knee; M25.561 Pain in right knee
CPT/HCPCS: 73721

== ENCOUNTER → 2024-10-22 08:49 | Outpatient (CLI) | payer MEDICARE, SELFPAY ==
[2024-10-22 09:16] LABS: Add Manual Diff / Slide Review NO; Basophils Absolute Auto 0 /uL (0-100); Basophils Percent Auto 0.6 % (0-2); Eosinophils Absolute Auto 100 /uL (0-450); Eosinophils Percent Auto 1.9 % (2-4); Hematocrit 37.1 % (36-46); Hemoglobin 12.7 g/dL (12.0-16.0); Lymphocytes Absolute Auto 1400 /uL (1100-4500); Lymphocytes Percent Auto 26.1 % (25-40); Mean Corpuscular HGB Conc 34.1 % (30-36); Mean Corpuscular Hemoglobin 31.4 PG (26-34); Mean Corpuscular Volume 92.1 fL (80-100); Monocytes Absolute Auto 600 /uL (0-900); Monocytes Percent Auto 10.5 % (3-14); Neutrophils Absolute Auto 3300 /uL (1500-7000); Neutrophils Percent Auto 60.9 % (50-75); Platelet Count 266 X10^3/uL (150-400); Red Blood Cell Count 4.03 X10^6/uL (4.0-5.2); Red Cell Distribution Width 13.5 % (11.6-14.8); White Blood Cell Count 5.5 X10^3/uL (4.5-11.0)
[2024-10-22 09:38] LABS: Cholesterol 186 mg/dL (140-199); HDL Cholesterol 61 mg/dL (40-60); LDL Cholesterol Calculated 105 mg/dL (<100); Triglycerides 100 mg/dL (35-150)
[2024-10-22 09:44] LABS: Iron 99 ug/dL (37-170)
[2024-10-22 09:55] LABS: Free T4, Direct Thyroxine 0.79 ng/dL (0.78-2.19)
[2024-10-22 10:09] LABS: Thyroid Stimulating Hormone 0.031 uIU/mL (0.47-4.68)
== END ==
PROVIDERS: PCP Family Medicine; Referring Provider Family Medicine; Visit Provider Family Medicine
DX: D64.9 Anemia, unspecified (principal); E03.9 Hypothyroidism, unspecified
CPT/HCPCS: 36415; 80061; 83540; 84439; 84443; 84481; 85025

== ENCOUNTER → 2024-11-05 10:30 | Outpatient (CLI) | payer MEDICARE, SELFPAY ==
--- NOTE | 2024-11-05 10:31 | DI.RAD.S_ITS ---
PROCEDURE: XR DEXA AXIAL SKELETON INDICATIONS: screening COMPARISON: [facility], CR, XR DEXA AXIAL SKELETON, 10/27/2022, 15:35. [facility], CR, XR DEXA AXIAL SKELETON, 10/29/2020, 14:18. FINDINGS: Lumbar Spine: Bone mineral density 0.8 and 7 g/cm2, T score -1.4, decreased by 3.2%. Left Hip: Bone mineral density 0.782 g/cm2, T score -1.3, decreased by 2.5%. Left Femoral Neck: Bone mineral density 0.576 g/cm2, T score -2.5. Right Hip: Bone mineral density 0.798 g/cm2, T score -1.2, decreased by 1.2%. Right Femoral Neck: Bone mineral density 0.590 g/cm2, T score -2.3. Fracture Risk Calculation (when applicable): 10-year fracture risk of a major osteoporotic fracture 28 percent and of a hip fracture 18 percent. (T score greater or equal to -1.0 to: NORMAL) (T score from -1.1 to -2.4: OSTEOPENIA) (T score less than or equal to -2.5: OSTEOPOROSIS) IMPRESSION: Osteoporosis by WHO classification. Follow-up guidelines as follows: Osteoporosis: Consider a repeat DEXA and Vertebral Fracture Assessment (VFA) exam in 2 years or sooner if medically necessary, to reassess this patient's status. Osteopenia: Consider a repeat DEXA in 2-3 years to reassess this patient's status, or if there is a new clinical indication. Normal: Consider a repeat DEXA in 5 years or sooner, or if there is a new clinical indication. All treatment decisions require clinical judgment and consideration of individual patient factors, including patient preferences, comorbidities, previous drug use, risk factors not captured in the FRAX model (e.g., frailty, falls, vitamin D deficiency, increased bone turnover, interval significant decline in bone density ) and possible under- or over-estimation of fracture risk by FRAX. In addition, the NOF Guide recommends that FDA-approved medical therapies be considered in postmenopausal women and men age >= 50 years with a: * Hip or vertebral (clinical or morphometric) fracture * T-score of <=-2.5 at the spine or hip * Ten-year fracture probability by FRAX of >= 3% for hip fracture or >=20% for major osteoporotic fracture. People with diagnosed cases of osteoporosis or at high risk for fracture should have regular bone mineral density tests. For patients eligible for Medicare, routine testing is allowed once every 2 years. The testing frequency can be increased to one year for patients who have rapidly progressing disease, those who are receiving or discontinuing medical therapy to restore bone mass, or have additional risk factors. Dictated by: Arun Santos M.D. on 11/05/2024 at 14:51 Approved by: Arun Santos M.D. on 11/05/2024 at 14:52
== END ==
PROVIDERS: PCP Family Medicine; Referring Provider Family Medicine; Visit Provider Family Medicine
DX: M81.0 Age-related osteoporosis without current pathological fracture (principal)
CPT/HCPCS: 77080

== ENCOUNTER 2025-01-08 07:01 | Day surgery (SDC) | payer MEDICARE, SELFPAY ==
--- NOTE | 2025-01-08 | PATH_ITS ---
[facility] Accession Number: [id number] No. of containers..02 Tissue . 01 Material submitted: . PART A: colon - ASCENDING COLON POLYP PART B: colon - SIGMOID POLYP . 01 Diagnosis: Part A: ASCENDING COLON POLYP: Sessile serrated adenoma. . Part B: SIGMOID POLYP: Colonic mucosa with benign lymphoid aggregate. No neoplasm identified. [facility] 01/11/2025 1824 Local . 01 Electronically signed: . Carl Samuels MD, Pathologist NPI- [id number] . 01 Gross description: . Part A: ASCENDING COLON POLYP: Received in formalin are multiple fragment(s) of jung, soft tissue measuring 0.1 x 0.1 x 0.1 cm to 0.7 x 0.6 x 0.5 cm submitted entirely in 1 cassette(s) . Part B: SIGMOID POLYP: Received in formalin is 1 fragment(s) of jung, soft tissue measuring 0.7 x 0.4 x 0.4 cm submitted entirely in 1 cassette(s) /[facility] 01/11/2025 1824 Local . 01 Pathologist provided ICD-10: D12.2, K63.89 . 01 CPT . 792043, 512385 Specimen Comment: A courtesy copy of this report has been sent to [facility] Pathology Performed at: [address] [address], [place], [place] [id number] MD Carl Samuels MD Phone: [phone]
[2025-01-08 07:47] VITALS: BP 131/73; PULSE 78; RESP 18; TEMP 36.4; O2SAT 100
[2025-01-08] MEDS: LACTATED RINGERS 1,000 ML 42 ML IV (07:55)
--- NOTE | 2025-01-08 08:55 | P.HP_ITS ---
History of Present Illness History of Present Illness Date Patient Seen: 01/08/25 Time Patient Seen: 08:56 Chief complaint: Colonoscopy Narrative: 74-year-old white female with previous colonoscopies with polyps. No other issues. [facility] Medical History (Updated 01/08/25 @ 08:57 by Sven Freitas MD) Personal history of colonic polyps Right thyroid nodule (10/12/17) Tubular adenoma of colon (01/13/13) Right knee meniscal tear (~2014) Right knee pain (~2014) Cataract Tinnitus Vertigo Osteopenia (2013) Shoulder pain (1999) Anemia (1973) Osteoarthritis (~2003) Surgical History History of colonoscopy with polypectomy (05/10/09) History of colonoscopy with polypectomy (01/13/13) History of right cataract surgery (12/11/17) History of left cataract surgery (12/11/17) Anesthesia Status post right oophorectomy (1987) Status post left oophorectomy (1989) Status post knee surgery (2012) Status post hysterectomy (1987) Status post tubal ligation (~1974) Family History Brother Age: 72 Low blood sugar Brother Age: 70 High cholesterol Brother Age: 63 High cholesterol Father Age: 100 Colon cancer Prostate cancer Mother Age: 99 High cholesterol Dementia Sister Age: 74 High cholesterol Sister Age: 65 Low blood sugar Sister Age: 54 High cholesterol Brother No problems noted. Sister No problems noted. Sister No problems noted. Other Malignant melanoma of rectum Social History marital status: number of children: 2 household members: spouse lives independently: Yes caregiver/support person: No housing: house Smoking Status: Never smoker second hand exposure: No alcohol intake: current substance use type: does not use Meds Home Medications and Allergies Home Medications Medication Instructions Recorded Confirmed Type CHOLECALCIFEROL (VITAMIN D3) 5,000 iu PO Q DAY ##0 05/17/12 10/22/24 History (VITAMIN D) Calcium (#CALCIUM 500) 500 mg PO Q DAY ##0 06/10/12 10/22/24 History MULTIVITAMIN (#MULTIPLE VITAMINS) 1 cap PO Q DAY ##0 06/10/12 10/22/24 History ascorbic acid (vitamin C) 500 mg 1,000 mg PO BID ##0 06/10/12 10/22/24 History tablet Iron (#FERROUS FUMARATE) 29 mg PO EVERY OTHER DAY ##30 10/08/12 01/08/25 History omega-3 fatty acids 500 mg-dha 270 1 tab PO BID ##0 12/11/17 10/22/24 History mg-epa 135 mg capsule (Ovega-3) lutein 20 mg capsule 20 mg PO DAILY 03/14/19 10/22/24 History glucosamine 500 mg-msm 100 mg-vit cap PO Joint health 10/16/23 10/22/24 History C 20 ma-qgwzx-ghdp-primrose capsule (Joint Support Complex) red yeast rice 600 mg capsule 1,200 mg PO DAILY High cholesterol 10/16/23 10/22/24 History sodium,potassium,mag sulfates 17.5 See Rx Instructions PO .COMPLEX 12/10/24 Rx gram-3.13 gram-1.6 gram oral soln #354 mL (Suprep Bowel Prep Kit) Allergies Allergy/AdvReac Type Severity Reaction Status Date / Time Sulfa (Sulfonamide Allergy Mild JOINT PAIN Verified 01/08/25 07:46 Antibiotics) [SULFA (SULFONAMIDE ANTIBIOTICS)] Review of Systems Review of Systems ROS: Yes All systems reviewed with the patient and are negative except as otherwise documented Exam Vital Signs (past 8 hours): - 01/08/25 07:47 Temperature 97.6 F Pulse Rate 78 Respiratory Rate 18 Blood Pressure 131/73 Pulse Oximetry 100 Oxygen Delivery Method Room Air Oxygen Delivery Method Room Air Narrative Exam Narrative: Gen: NAD, sitting comfortably in bed, appears well HEENT: Sclera are anicteric, head is normocephalic and atraumatic, trachea is midline. CV: RRR, no JVD Resp: clear to auscultation bilaterally, equal chest wall movement bilaterally Abd: soft, nontender, normoactive bowel sounds Ext: no edema, full range of motion Neuro: Cranial nerves II-XII grossly intact, no focal deficits Skin: No erythema or ecchymosis Assessment & Plan Assessment and plan (1) Personal history of colonic polyps: Status: Acute Assessment & Plan narrative: Patient presents for colonoscopy Risks, benefits, alternatives to colonoscopy explained, including but not limited to bowel perforation or other serious complication requiring surgery at less than 1 in 5000 colonoscopies, abdominal pain, cramping or bleeding and less than 1% of colonoscopies, and the chances that we find a diagnosis that would require further intervention of about 2%. Patient agrees to proceed. Time-Based Coding :: [TOTAL MINUTES] spent with patient and on the chart (including review of chart, obtaining history, exam, reviewing outside data, placing orders, documenting exam and treatment plan, and counseling patient) on [DATE]. 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
--- NOTE | 2025-01-08 09:31 | PM.OP.COLON ---
Operative Date/Time/Diagnoses Date of procedure: 01/08/25 Time of procedure: 09:31 Pre-op diagnosis: Personal history of polyps Post-op diagnosis: same (Ascending colon polyp, sigmoid polyp) Procedure & Clinicians Study performed: Colonoscopy with cold snare polypectomy x2 Same procedure as scheduled: Yes Indications: Personal history of polyps Surgeon: Sven Freitas Procedure Notes SCOAP/Timeout: Performed Procedure in detail: Time-out was performed. Mac was induced. Patient was placed in left lateral decubitus position. The perineum was inspected without any gross abnormality. Lubricated pediatric colonoscope was inserted and advanced to the cecum. The terminal ileum was intubated. The colonoscope was withdrawn slowly inspecting the circumference of the colon. Small polyp was noted in the ascending colon and sigmoid colon. These were removed completely with cold snare polypectomy and retrieved. Very small polyps may have been missed, prep quality was adequate. Retroflexed view of the rectum showed small, non prolapsed nonbleeding internal hemorrhoids. The scope was withdrawn the patient was taken to PACU in good condition. Scope withdrawal time: 11 Sedation minutes: 29 Findings: polyp(s) Specimen(s): other (1. Ascending colon polyp2. Sigmoid polyp) Complications: none Impression: Benign-appearing polyps Post-procedure Recommendations: Colonoscopy in 5 years Follow up: as needed Disposition: PACU
[2025-01-08 09:32] VITALS: BP 119/65; PULSE 81; RESP 14; TEMP 36.6; O2SAT 98
[2025-01-08 09:37] VITALS: BP 119/67; PULSE 80; RESP 16; O2SAT 98
[2025-01-08 09:42] VITALS: BP 107/80; PULSE 78; RESP 16; O2SAT 99
[2025-01-08 09:44] VITALS: BP 118/62; PULSE 78; RESP 16; O2SAT 99
== END 2025-01-08 10:20 | disposition home or self-care (01) ==
PROVIDERS: PCP Family Medicine; Referring Provider Surgery; Visit Provider Surgery
PROC: 0DJD8ZZ Inspection of Lower Intestinal Tract, Via Natural or Artificial Opening Endoscopic (ICD-10-PCS; CPT 45378; principal; 2025-01-08 08:15)
DX: Z12.11 Encounter for screening for malignant neoplasm of colon (principal); Z86.0100 Personal history of colon polyps, unspecified; D12.2 Benign neoplasm of ascending colon
CPT/HCPCS: 45385; J2704

== ENCOUNTER → 2025-10-09 12:22 | Outpatient (CLI) | payer MEDICARE, SELFPAY ==
[2025-10-09 12:47] LABS: Add Manual Diff / Slide Review NO; Hematocrit 39.1 % (36-46); Hemoglobin 13.2 g/dL (12.0-16.0); Lymphocytes Absolute Auto 1900 /uL (1100-4500); Mean Corpuscular HGB Conc 33.9 % (30-36); Mean Corpuscular Hemoglobin 30.6 PG (26-34); Mean Corpuscular Volume 90.2 fL (80-100); Platelet Count 230 X10^3/uL (150-400)
[2025-10-09 13:12] LABS: Iron 63 ug/dL (37-170)
[2025-10-09 13:15] LABS: Cholesterol 209 mg/dL (140-199); HDL Cholesterol 74 mg/dL (40-60); Triglycerides 151 mg/dL (35-150)
[2025-10-09 13:24] LABS: Free T3, Triiodothyronine Free 3.52 pg/mL (2.77-5.27); Free T4, Direct Thyroxine 0.89 ng/dL (0.78-2.19)
[2025-10-09 13:37] LABS: Thyroid Stimulating Hormone 0.263 uIU/mL (0.47-4.68)
[2025-10-09 13:47] LABS: Ferritin 66 ng/mL (11-264)
[2025-10-09 15:29] LABS: Estradiol, Total 16.0 pg/mL
== END ==
PROVIDERS: PCP Family Medicine; Referring Provider Family Medicine; Visit Provider Family Medicine
DX: D64.9 Anemia, unspecified (principal); E03.9 Hypothyroidism, unspecified; Z13.9 Encounter for screening, unspecified; Z78.9 Other specified health status; Z78.0 Asymptomatic menopausal state
CPT/HCPCS: 80061; 82670; 82728; 83540; 84439; 84443; 84481; 85025